=== PATIENT | male | born 1985 | race Caucasian/White ===

== ENCOUNTER → 2016-11-08 | Outpatient (CLI) | payer OTHER ==
[~2016-11-08] MED LIST: CYCL5TAB PO; GABA-585 PO; HYDR-2666 PO
--- NOTE | 2016-11-08 13:44 | KCIC ---
PROCEDURE MRI lumbar spine without contrast. HISTORY Lumbar radiculopathy, weight lifting, low back pain, entire left leg pain and tingling for 1 year TECHNIQUE Sagittal and axial T1 and T2 and sagittal STIR images were acquired of the lumbar spine. Contrast: None COMPARISON None FINDINGS Lumbar vertebral body stature and AP alignment are preserved. There is moderate degenerative disc disease greater posteriorly at L5-S1. There are posterior annular tears L4-5 and L5-S1. Conus terminates normally at the inferior aspect of L1. There is no focal marrow edema. L3-L4: Spinal canal and neural foramina are adequate L4-5: There is negligible posterior bulge. Spinal canal and neural foramina are adequate. L5-S1: There is a shallow protrusion more eccentric to the right lateral recess with contact descending right S1 nerve root although also shallow protrusion near the descending left S1 nerve root. There is no significant displacement of the descending S1 nerve roots. 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 Central canal is adequate. There is minimal narrowing of the left neural foramen, right neural foramen adequate. IMPRESSION 1. There is moderate degenerative disc disease at L5-S1. There are shallow protrusions in the lateral recesses at L5-S1 greater on the right, near descending S1 nerve roots without significant displacement or spinal stenosis. 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 There is minimal narrowing of the left L5-S1 neural foramen. There is negligible bulge L4-5 without significant neural impingement or spinal stenosis. Electronically signed by: Darrell Sutherland MD (Nov 08, 2016 13:43:32)
--- NOTE | 2016-11-08 13:46 | KCIC ---
PROCEDURE Lumbar spine radiographs HISTORY Low back pain, entire left leg pain and tingling for 1 year, lumbar radiculopathy COMPARISON None FINDINGS Three views of lumbar spine to include neutral, flexion, extension lateral radiographs are submitted. Lumbar vertebral body stature is preserved. AP alignment is preserved, does not significantly change with flexion or extension. There is mild to moderate narrowing of the L5-S1 intervertebral disc space greater posteriorly. IMPRESSION AP alignment does not significantly change with flexion or extension. There is mild to moderate degenerative disc disease L5-S1. Electronically signed by: Darrell Sutherland MD (Nov 08, 2016 13:45:41)
== END | disposition home or self-care (01) ==
LOC: KCIC MRI 12:06
PROVIDERS: ATTEND Neurological Surgery
DX: M54.16 Radiculopathy, lumbar region (principal); M79.605 Pain in left leg
CPT/HCPCS: 72100; 72148

== ENCOUNTER → 2016-11-28 | Outpatient (CLI) | payer OTHER ==
[~2016-11-28] MED LIST changes: +IOHEXOL 180 MG/ML 10 ML VIAL. IT ONE; +LIDOCAINE 1% Multi-Dose 20 ML VIAL. ID ONE
--- NOTE | 2016-11-28 15:28 | KCIC ---
PROCEDURE Lumbar myelogram 11/28/2016 HISTORY Chronic low back pain which radiates down the left leg. TECHNIQUE After the risks and benefits of the procedure were explained to the patient, written informed consent was obtained. The patient was placed prone on the fluoroscopy table and the lower back was prepped and draped in sterile fashion. 1 percent lidocaine was used as a local anesthetic. Under fluoroscopic guidance, the thecal sac of the lumbar cistern was punctured at the L3-4 level using a 25 gauge Lucy needle. After confirming clear CSF return, 15 cc of Omnipaque 180 were injected into the thecal sac of the lumbar cistern under fluoroscopic guidance. Following this the needle was removed and hemostasis achieved at the puncture site. A sterile Band-Aid was placed on the skin puncture site. AP, bilateral oblique, lateral and standing neutral and flexion and extension lateral digital spot radiographs of the lumbar spine were obtained. Following this the patient was taken to CT where a CT lumbar myelogram was performed. This will be reported separately. The patient was then taken to the recovery area were he was observed for approximately 30 minutes prior to discharge home. The patient tolerated the procedure well and there were no immediate complications. The patient was sent home with an instruction sheet. The total fluoroscopic time for this study was 1 minutes 3 seconds. Nine digital spot radiographs were obtained. FINDINGS Minimal lateral curvature of the lumbar spine is seen convex to the right. Mild degenerative changes consisting of vertebral endplate sclerosis and minimal anterior and posterior vertebral body osteophyte formation are seen at the L4-5 and L5-S1 disc spaces. Mild anterior extradural defects are seen upon the contrast column at these levels. There is no evidence of complete block of contrast at any level involving the lumbar spine. The alignment of the lumbar vertebrae is maintained on the flexion and extension radiographs. IMPRESSION Mild degenerative changes are seen involving the lower lumbar spine as outlined above. Electronically signed by: Matthew Parks MD (Nov 28, 2016 15:26:56)
--- NOTE | 2016-11-28 15:41 | KCIC ---
PROCEDURE CT lumbar myelogram 11/28/2016 HISTORY Chronic low back pain which radiates down the left leg. TECHNIQUE This study was performed after a lumbar myelogram. Contiguous, 0.6 millimeter axial sections were obtained through the lumbar spine. 3 millimeter reconstructed sagittal, axial and coronal images were obtained. One or more of the following individualized dose reduction techniques were utilized for this study: 1. Automated exposure control. 2. Adjustment of the mA and/or kV according to patient size. 3. Use of iterative reconstruction technique. FINDINGS Comparison is made to the patient's lumbar myelogram performed earlier today. Additional comparison is made to a MRI of the lumbar spine dated 11/08/2016. Sagittal and coronal reconstructed images demonstrate minimal S-shaped curvature of the thoracolumbar spine. Degenerative changes consisting of vertebral endplate sclerosis and minimal anterior and posterior vertebral body osteophyte formation are seen involving predominantly the L4-5 and L5-S1 disc spaces. Loss of height of the L5-S1 disc is noted. The L1-2, L2-3 and L3-4 disc spaces are within normal limits. At the L4-5 disc space there is a minimal generalized disc bulge. Mild degenerative changes are seen involving the facet joints bilaterally. There is mild ligamentum flavum hypertrophy. These findings when combined do not result in significant central spinal canal or neural foraminal stenosis. At the L5-S1 disc space there is a mild to moderate generalized disc bulge. This is eccentric to the right. Degenerative changes are seen involving the facet joints, left greater than right. These findings when combined do not result in significant central spinal canal stenosis. Mild left neural foraminal stenosis is seen. The right neural foramina is patent. IMPRESSION The changes of degenerative disc disease are seen involving the lower lumbar spine. These findings do not result in significant central spinal canal stenosis at any level. Mild left neural foraminal stenosis is seen at L5-S1. Electronically signed by: Matthew Parks MD (Nov 28, 2016 15:40:34)
== END | disposition home or self-care (01) ==
LOC: KCIC 13:11
PROVIDERS: ATTEND Neurological Surgery
DX: M54.5 Low back pain (principal); G89.29 Other chronic pain
CPT/HCPCS: 72132; 72265